=== PATIENT | female | born 1995 | race Caucasian/White ===

== ENCOUNTER 2017-03-24 01:20 | Inpatient (IN) | payer MEDICAID ==
[~2017-03-24] VITALS: Ht 139.7 cm; Wt 47.0 kg
[~2017-03-24 01:20] MED LIST: NITR-58 PO; POLY10DR LEFT EYE; PREN-39 PO
[2017-03-24 02:01] VITALS: Ht 139.7 cm; Wt 47.0 kg
[2017-03-24 02:02] VITALS: BP 123/69; PULSE 75; RESP 16
[2017-03-24] MEDS ORDERED: LACTATED RINGER'S 1,000 ML IV SCH (02:05)
--- NOTE | 2017-03-24 02:08 | HP ---
Date/Time of Note Date/Time of Note DATE: 03/24/17 TIME: 02:06 OB - History Hx of Present Free Text/Dictation 40+ : 2 Para: 1 Care: Limited Care Ultrasounds: Normal mid trimester US Obstetrical Complications: None Medical Complications: None Past Family/Social History * Past Medical, Surgical, Family and Obstetric Histories reviewed from chart. OB Admission Exam Vital Signs Vital Signs Vital Signs Date Time Temp Pulse Resp B/P Pulse Ox O2 Delivery O2 Flow Rate FiO2 03/24/17 02:02 97.9 75 16 123/69 Room Air Physical Exam Extremities: Normal Cervical Dilatation: 4cm Effacement: 75% Station: -1 Membranes: Intact Heart Rate: 140's Accelerations: Accelerations Present Decelerations: No Decelerations Varibility: Moderate Contractions on Admission: < 5 Minutes Apart OB Assessment/Plan Induction Method: per Pitocin Protocol KIRAN SANON M.D. Mar 24, 2017 02:07
[2017-03-24] MEDS ORDERED: IBUPROFEN 600 MG TAB PO PRN (02:30)
[2017-03-24] MEDS ORDERED: LACTATED RINGER'S 1,000 ML IV PRN (02:30)
[2017-03-24] MEDS ORDERED: METHYLERGONOVINE 0.2 MG INJ IM PRN ×2 (02:30→08:00)
[2017-03-24] MEDS ORDERED: OXYTOCIN 30 UNITS/LR 500 ML IV PRN ×2 (02:30→08:00)
[2017-03-24] MEDS ORDERED: LIDOCAINE 1% (MPF) 30 ML INJ INJ PRN (02:30)
[2017-03-24] MEDS ORDERED: MISOPROSTOL 200 MCG TAB PR PRN ×2 (02:30→08:00)
[2017-03-24] MEDS ORDERED: CARBOPROST 250 MCG INJ IM PRN ×2 (02:30→08:00)
[2017-03-24] MEDS ORDERED: OXYTOCIN 30 UNITS/LR 500 ML IV SCH ×2 (02:30)
[2017-03-24 02:48] LABS: ADD SCAN DIFF NO
[2017-03-24 02:49] LABS: BASOPHILS % 0.3 % (0.0-2.0); EOSINOPHILS # 0.1 10^3/ul (0.0-0.5); EOSINOPHILS % 1.2 % (0.0-7.0); HEMATOCRIT 32.8 % (37.0-47.0); HEMOGLOBIN 10.7 g/dl (12.0-16.0); LYMPHOCYTES # 1.9 10^3/ul (0.8-2.9); LYMPHOCYTES % 27.8 % (15.0-51.0); MEAN CORPUSCULAR HEMOGLOBIN 25.5 pg (29.0-33.0); MEAN CORPUSCULAR HGB CONC 32.6 g/dl (32.0-37.0); MEAN CORPUSCULAR VOLUME 78.1 fl (82.0-101.0); MEAN PLATELET VOLUME 11.5 fl (7.4-10.4); MONOCYTE # 0.5 10^3/ul (0.3-0.9); MONOCYTES % 6.7 % (0.0-11.0); NEUTROPHIL # 4.4 10^3/ul (1.6-7.5); NEUTROPHILS % 63.6 % (39.0-77.0); PLATELET COUNT 174 10^3/UL (140-415); RED CELL DISTRIBUTION WIDTH 17.1 % (11.5-14.5); WHITE BLOOD COUNT 6.9 10^3/ul (4.8-10.8)
[2017-03-24 03:08] LABS: INR 0.87; PROTIME 11.8 Sec (12.2-14.2); PT RATIO 0.9
[2017-03-24 03:09] LABS: PARTIAL THROMBOPLASTIN TIME 25.8 Sec (25.0-35.0)
--- NOTE | 2017-03-24 03:40 | RADRPT ---
PROCEDURE: US OB. CLINICAL INDICATION: Labor. TECHNIQUE: Multiple sonographic images of the pelvis were obtained. Transabdominal imaging only w as performed. The images were reviewed on a PACS workstation. COMPARISON: None. FINDINGS: There is a single viable intrauterine gestation. Cardiac activity is present with 139 beats per minute. There is a cephalic presentation. Measurements were made in order to determine age. The results are as follows: BPD = 8.51 cm HC = 33.07 cm AC = 34.05 cm FL = 7.55 cm Estimated gestational age of approximately 37 weeks 1 day. The estimated date of delivery is 04/13/2017. The EFW = 3260 g. EFW percentile: 17% The placenta is posterior, grade 2. There is no evidence for an abruption. IMPRESSION: 1. Single viable intrauterine gestation of approximately 37 weeks 1 day, based on ultrasound measur ements. The estimated date of delivery is 04/13/2017. 2. EFW percentile: 17%. RPTAT: HTAR .Roman Zhang MD, Date Time Electronically viewed and signed by .Roman Zhang MD, on 03/24/2017 03:39 .R/
[2017-03-24] MEDS: BUTORPHANOL 2 MG INJ IV PRN ×2 (03:49→05:31)
--- NOTE | 2017-03-24 06:09 | LDN ---
Date/Time of Note Date/Time of Note DATE: 03/24/17 TIME: 06:08 Delivery Summary Weeks of Gestation 40+ Placenta Delivered: Spontaneously Meconium: none Anesthesia type: None Estimated blood loss: 200 Sponge & Needle done & correct: Yes All needle counts correct: Yes Any foreign bodies felt in the: No Problems: Delivery Information Sex Sex: male Apgars 1 Minute: 9 5 Minute: 9 Suctioning Nose & mouth suctioned at fabienne: Yes Umbilical Cord Umbilical cord with: 3 Vessels Cord presentations: no nuchal cord Cord Blood was obtained: Yes Mother & Baby Disposition Disposition Mom & Baby to Maternity; Good: Yes Baby to NICU: No KIRAN SANON M.D. Mar 24, 2017 06:09
[2017-03-24] MEDS ORDERED: LACTATED RINGER'S 1,000 ML IV* SCH (07:50)
[2017-03-24 08:00] VITALS: BP 103/63; RESP 19
[2017-03-24] MEDS ORDERED: SENNA/DOCUSATE NA (8.6MG/50MG) TAB PO PRN (08:00)
[2017-03-24] MEDS ORDERED: WITCH HAZEL/GLYCERIN PAD PR PRN (08:00)
[2017-03-24] MEDS ORDERED: LANOLIN 7 GM TUBE TOP PRN (08:00)
[2017-03-24] MEDS ORDERED: BENZOCAINE 20% 56 ML SPRAY TOP PRN (08:00)
[2017-03-24] MEDS ORDERED: ZOLPIDEM 5 MG TAB PO PRN (08:00)
[2017-03-24 12:00] VITALS: BP 117/58; PULSE 71; RESP 19
[2017-03-24] MEDS: IBUPROFEN 600 MG TAB PO SCH ×3 (12:00→17:33)
[2017-03-24] MEDS: SENNA/DOCUSATE NA (8.6MG/50MG) TAB PO SCH ×2 (12:31→21:36)
[2017-03-24] MEDS: OXYCODONE/ASPIRIN (4.88/325) TAB PO PRN ×2 (12:33→21:36)
[2017-03-24 16:00] VITALS: BP 109/64; PULSE 71; RESP 19
[2017-03-24 20:20] VITALS: BP 102/51; PULSE 81; RESP 18
[2017-03-25] VITALS: BP 109/65; PULSE 69; RESP 20
[2017-03-25] MEDS: IBUPROFEN 600 MG TAB PO SCH ×4 (00:11→17:26)
[2017-03-25 04:00] VITALS: BP 97/48; PULSE 82; RESP 20
[2017-03-25 07:40] VITALS: BP 131/69; PULSE 82; RESP 18
[2017-03-25 08:33] LABS: ADD SCAN DIFF NO
[2017-03-25 08:41] LABS: BASOPHILS % 0.3 % (0.0-2.0); EOSINOPHILS # 0.1 10^3/ul (0.0-0.5); EOSINOPHILS % 1.8 % (0.0-7.0); HEMATOCRIT 28.1 % (37.0-47.0); HEMOGLOBIN 8.9 g/dl (12.0-16.0); LYMPHOCYTES % 27.4 % (15.0-51.0); MEAN CORPUSCULAR HEMOGLOBIN 25.3 pg (29.0-33.0); MEAN CORPUSCULAR HGB CONC 31.7 g/dl (32.0-37.0); MEAN CORPUSCULAR VOLUME 79.8 fl (82.0-101.0); MONOCYTE # 0.4 10^3/ul (0.3-0.9); MONOCYTES % 5.4 % (0.0-11.0); NEUTROPHIL # 4.7 10^3/ul (1.6-7.5); NEUTROPHILS % 64.8 % (39.0-77.0); PLATELET COUNT 140 10^3/UL (140-415); RED BLOOD COUNT 3.52 10^6/ul (4.20-5.40); RED CELL DISTRIBUTION WIDTH 17.3 % (11.5-14.5); WHITE BLOOD COUNT 7.3 10^3/ul (4.8-10.8)
[2017-03-25] MEDS: SENNA/DOCUSATE NA (8.6MG/50MG) TAB PO SCH ×2 (09:13→20:41)
--- NOTE | 2017-03-25 12:16 | PN ---
Date/Time of Note Date/Time of Note DATE: 03/25/17 TIME: 12:13 OB Subjective Subjective Subjective March 25, 2017 visit Post day 1 Patient is doing well, Ambulatory She is afebrile Abdomen is soft , Fundus is firm Moderate amount of lochia Breasts are soft, Nipples are intact No calf tenderness. Perineum is healing well. Breast feeding the new born. Laboratory Tests Test 03/25/17 08:06 White Blood Count 7.310^3/ul Red Blood Count 3.5210^6/ul Hemoglobin 8.9g/dl Hematocrit 28.1% Mean Corpuscular Volume 79.8fl Mean Corpuscular Hemoglobin 25.3pg Mean Corpuscular Hemoglobin Concent 31.7g/dl Red Cell Distribution Width 17.3% Platelet Count 63070^3/UL Mean Platelet Volume 11.0fl Neutrophils % 64.8% Lymphocytes % 27.4% Monocytes % 5.4% Eosinophils % 1.8% Basophils % 0.3% Nucleated Red Blood Cells % 0.0/100WBC Neutrophils # 4.710^3/ul Lymphocytes # 2.010^3/ul Monocytes # 0.410^3/ul Eosinophils # 0.110^3/ul Basophils # 0.010^3/ul Nucleated Red Blood Cells # 0.010^3/ul Current Medications Medications (Trade) Dose Ordered Sig/Wali Route PRN Reason Start Time Stop Time Status Last Admin Dose Admin Lactated Ringer's 1,000 ml @ 125 mls/hr Q8H IV 03/24/17 02:05 03/24/17 07:52 DC 03/24/17 02:58 Oxytocin/Lactated Ringer's 500 ml @ 0 mls/hr TITRATE IV 03/24/17 02:30 03/24/17 07:52 DC 03/24/17 03:58 Butorphanol Tartrate (Stadol) 2 mg Q2H PRN IV PAIN 03/24/17 02:30 03/24/17 07:52 DC 03/24/17 03:49 Lidocaine 30 ml 30 ml ONCE PRN INJ EPISIOTOMY/TEARING 03/24/17 02:30 03/24/17 07:52 DC Oxytocin/Lactated Ringer's 500 ml @ 125 mls/hr ONCE IV 03/24/17 02:30 03/24/17 07:52 DC 03/24/17 06:28 Ibuprofen 600 mg 600 mg ONCE PRN PO Mild Pain (Pain Score 1-3) 03/24/17 02:30 03/24/17 07:52 DC 03/24/17 06:14 Lactated Ringer's 1,000 ml @ 2,000 mls/hr Q30M PRN IV PRE-EPIDURAL BOLUS 03/24/17 02:30 03/24/17 07:52 DC Oxytocin/Lactated Ringer's 500 ml @ 0 mls/hr ONCE PRN IV For Hemorrhage Management 03/24/17 02:30 03/24/17 07:52 DC Methylergonovine Maleate (Methergine) 0.2 mg ONCE PRN IM VAGINAL BLEEDING 03/24/17 02:30 03/24/17 07:52 DC Carboprost Tromethamine (Hemabate) 250 mcg ONCE PRN IM VAGINAL BLEEDING 03/24/17 02:30 03/24/17 07:52 DC Misoprostol 1000 mcg 1,000 mcg ONCE PRN NE VAGINAL BLEEDING 03/24/17 02:30 03/24/17 07:52 DC Lactated Ringer's (Lr) 1,000 ml @ 125 mls/hr Q8H IV* 03/24/17 07:50 03/24/17 12:35 DC Ibuprofen (Motrin) 600 mg Q6 PO 03/24/17 08:00 03/25/17 11:24 Oxycodone/Aspirin (Percodan) 2 tab Q3H PRN PO PAIN LEVEL 6-10 03/24/17 08:00 03/24/17 21:36 Zolpidem Tartrate (Ambien) 5 mg QHS PRN PO INSOMNIA 03/24/17 08:00 Senna/Docusate Sodium (Senokot-S) 1 tab BID PO 03/24/17 09:00 03/25/17 09:13 Senna/Docusate Sodium (Senokot-S) 1 tab BID PRN PO CONSTIPATION 03/24/17 08:00 Witch Rosalina/ Glycerin (Tucks Pads) 1 pad BEDSIDE MEDICATION PRN NE HEMORRHOID/EPISIOTMY PAIN 03/24/17 08:00 03/24/17 12:32 Benzocaine (Dermoplast Harriet) 1 spray BEDSIDE MEDICATION PRN TOP HEMORRHOID/EPISIOTMY PAIN 03/24/17 08:00 Lanolin ([id number]) 1 applic BEDSIDE MEDICATION PRN TOP BEDSIDE FOR PATEL TO NIPPLES 03/24/17 08:00 03/24/17 12:32 Diphtheria/ Tetanus/Acell Pertussis 0.5 ml 0.5 ml ONCE ONCE IM* 03/26/17 09:00 03/26/17 09:01 Oxytocin/Lactated Ringer's 500 ml @ 0 mls/hr ONCE PRN IV For Hemorrhage Management 03/24/17 08:00 Methylergonovine Maleate (Methergine) 0.2 mg ONCE PRN IM VAGINAL BLEEDING 03/24/17 08:00 Carboprost Tromethamine (Hemabate) 250 mcg ONCE PRN IM VAGINAL BLEEDING 03/24/17 08:00 Misoprostol (Cytotec) 1,000 mcg ONCE PRN NE VAGINAL BLEEDING 03/24/17 08:00 Patient advised to use Lanoline cream on her nipples after breast feeding. CHOCO PRADHAN MD Mar 25, 2017 12:16
[2017-03-25 16:00] VITALS: BP 103/53; PULSE 82; RESP 16
[2017-03-25 19:50] VITALS: BP 108/56; PULSE 82; RESP 20
[2017-03-26] MEDS: IBUPROFEN 600 MG TAB PO SCH ×3 (00:06→11:38)
[2017-03-26 04:00] VITALS: BP 113/48; PULSE 76; RESP 20
[2017-03-26 07:30] VITALS: BP 106/59; PULSE 75; RESP 16
[2017-03-26] MEDS ORDERED: DIPHTH/TET/ACEL PERTUSS (ADULT) 0.5 ML VIAL IM* ONE (09:00)
[2017-03-26] MEDS: SENNA/DOCUSATE NA (8.6MG/50MG) TAB PO SCH (09:09)
--- NOTE | 2017-03-26 13:44 | DS ---
Date/Time of Note Date/Time of Note DATE: 03/26/17 TIME: 13:44 Obstetrical Discharge Record Final Diagnosis Final Diagnosis: Term delivered Vaginal Delivery Obstetrical Delivery: Spontaneous Condition on Discharge Physical Assessment Voiding: Yes Breast: Soft, non-tender Fundus: Firm Calf Tenderness: No Patient Condition: Stable ANN QUINN MD Mar 26, 2017 13:44
== END 2017-03-26 14:45 | disposition home or self-care (01) | DRG 775 ==
LOC: OBT 01:20 → L-D 01:20 → OBT 01:50 → PP1 07:55
PROVIDERS: ADMIT Obstetrics & Gynecology; ATTEND Obstetrics & Gynecology
PROC: 10E0XZZ Delivery of Products of Conception, External Approach (ICD-10-PCS; principal; 2017-03-24)
PROC: 3E033VJ Introduction of Other Hormone into Peripheral Vein, Percutaneous Approach (ICD-10-PCS; 2017-03-24)
PROC: 3E00X4Z Introduction of Serum, Toxoid and Vaccine into Skin and Mucous Membranes, External Approach (ICD-10-PCS; 2017-03-26)
DX: O48.0 Post-term pregnancy (principal); Z23 Encounter for immunization; Z3A.40 40 weeks gestation of pregnancy; Z37.0 Single live birth
CPT/HCPCS: 76815; 85025; 85610; 85730; 86592; 86900; 86901; 90715; G0463; J0595; J2590; J7120